=== PATIENT | male | born 1995 | race Caucasian/White ===

== ENCOUNTER 2018-01-14 11:09 | Emergency (ER) | payer OTHER, MEDICAID ==
[2018-01-14] MEDS: HYDROCODONE/APAP (5/325) TAB PO (12:53)
== END 2018-01-14 13:44 | disposition home or self-care (01) ==
LOC: FTE 11:09
DX: L02.31 Cutaneous abscess of buttock (principal); F17.210 Nicotine dependence, cigarettes, uncomplicated
CPT/HCPCS: 10060; 99284-25

== ENCOUNTER 2018-01-16 16:45 | Emergency (ER) | payer OTHER | END 2018-01-16 17:12 | disposition home or self-care (01) | LOC: E/R 16:45 | DX: L02.416 Cutaneous abscess of left lower limb (principal); Z87.891 Personal history of nicotine dependence | CPT/HCPCS: 99282 ==